=== PATIENT | female | born 1950 | race Caucasian/White ===

== ENCOUNTER 2017-05-20 10:18 | Day surgery (SDC) | payer MEDICARE, OTHER ==
[~2017-05-20 10:18] MED LIST: Lactated Ringers 1,000 ML IV SCH; Midazolam 1 MG/ML 2 ML SDV ONE; Propofol 200 MG/20 ML SDV ONE; fentaNYL 100 MCG/2 ML SDV ONE
--- NOTE | 2017-05-20 10:50 | PCM.PREANE ---
Preanesthetic Assessment - Anesthesia/Transfusion/Family Hx Anesthesia History: Prior Anesthesia Reaction Other Type of Anesthesia Reaction Comment: has had scop patch with the last 2 surgeries-good relief from N&V Family History of Anesthesia Reaction: No Transfusion History: No Prior Transfusion(s) Intubation History: Unknown - Review of Systems General: No Symptoms Pulmonary: No Symptoms Cardiovascular: No Symptoms Gastrointestinal: No Symptoms, Other (last one in ) Neurological: No Symptoms Other: Reports: None - Physical Assessment Height: 1.6 m Weight: 82.554 kg ASA Class: 2 Mental Status: Alert & Oriented x3 Airway Class: Mallampati = 2 Dentition: Reports: Normal Dentition Thyro-Mental Finger Breadths: 3 Mouth Opening Finger Breadths: 3 ROM/Head Extension: Full Lungs: Clear to Auscultation, Normal Respiratory Effort Cardiovascular: Regular Rate, Regular Rhythm - Allergies Allergies/Adverse Reactions: Allergies Allergy/AdvReac Type Severity Reaction Status Date / Time hydrocodone Allergy Intermediate Itching Verified 05/16/17 12:23 - Blood Blood Available: No - Anesthesia Plan Pre-Op Medication Ordered: None - Acknowledgements Anesthesia Type Planned: MAC Pt an Appropriate Candidate for the Planned Anesthesia: Yes Alternatives and Risks of Anesthesia Discussed w Pt/Guardian: Yes Pt/Guardian Understands and Agrees with Anesthesia Plan: Yes PreAnesthesia Questionnaire HEENT History: Reports: Cataract, Macular Degeneration Other HEENT History: wears glasses, has one artificial tooth Cardiovascular History: Reports: Hypertension Gastrointestinal History: Reports: GERD Genitourinary History: Reports: Urinary Incontinence Other Genitourinary History: overactive bladder Musculoskeletal History: Reports: Arthritis, Back Pain, Chronic Endocrine/Metabolic History: Reports: Obesity/BMI 30+ - Past Surgical History Head Surgeries/Procedures: Reports: None HEENT Surgical History: Reports: Cataract Surgery GI Surgical History: Reports: Appendectomy, Cholecystectomy, Colonoscopy (- normal) Female Surgical History: Reports: Breast Reduction, Tubal Ligation, Other ( See Below) Other Female Surgeries/Procedures: insertion of "Interstim" device Musculoskeletal Surgical History: Reports: Shoulder Surgery Other Musculoskeletal Surgeries/Procedures:: left shoulder arthroscopy with tendon repair and removal of bone spur - SUBSTANCE USE Smoking Status *Q: Never Smoker Days Per Week of Alcohol Use: 0 Recreational Drug Use History: No - HOME MEDS Home Medications: Home Meds Estrogens, Conjugated [Premarin Vaginal Crm] 1 applic VAG DAILY 05/16/17 [ History] Ibuprofen 200 mg PO ASDIRECTED 05/16/17 [History] Losartan Potassium 100 mg PO QAM 05/16/17 [History] Naltrexone HCl/Bupropion HCl [Contrave ER 8-90 mg Tablet] 2 tab PO BID 05/16/17 [History] Pantoprazole Sodium 40 mg PO DAILY 05/16/17 [History] Vit C/E/Zn/Coppr/Lutein/Zeaxan [Preservision Areds 2 Softgel] 1 cap PO DAILY [History] - CURRENT (IN HOUSE) MEDS Current Meds: Current Medications Lactated Ringer's (Ringers, Lactated) 1,000 mls @ 125 mls/hr IV ASDIRECTED [facility]I Discontinued Medications Fentanyl (Sublimaze) Confirm Administered Dose 100 mcg .ROUTE .STK-MED ONE Stop: 05/20/17 08:20 Lidocaine HCl (Xylocaine-Mpf 1%) Confirm Administered Dose 5 ml .ROUTE .STK-MED ONE Stop: 05/20/17 08:20 Midazolam HCl (Versed 1 Mg/Ml) Confirm Administered Dose 2 mg .ROUTE .STK-MED ONE Stop: 05/20/17 08:20 Propofol (Diprivan 20 Ml) Confirm Administered Dose 200 mg .ROUTE .STK-MED ONE Stop: 05/20/17 08:20
[2017-05-20] MEDS ORDERED: Lactated Ringers 1,000 ML IV SCH (11:45)
--- NOTE | 2017-05-20 11:47 | PCM.OPNOTE ---
- General Post-Op/Procedure Note Date of Surgery/Procedure: 05/20/17 Operative Procedure(s): Colonoscopy with snare rectal polypectomy Pre Op Diagnosis: Change in bowel habits Post-Op Diagnosis: Rectal polyp. Minimal diverticulosis. Anesthesia Technique: MAC (ASA II) Primary Surgeon: Thony Pettit Condition: Good Free Text/Narrative:: Dictation [id number] CPT CODE [id number]
--- NOTE | 2017-05-20 12:24 | OR ---
SURGEON: Thony Pettit M.D. DATE OF PROCEDURE: 05/20/2017 OPERATION PERFORMED: Colonoscopy with snare rectal polypectomy. ANESTHESIA: MAC. ASA CLASSIFICATION: II. PREOPERATIVE DIAGNOSIS: Change in bowel habits. POSTOPERATIVE DIAGNOSIS: Rectal polyp. DESCRIPTION OF PROCEDURE: The patient was taken to the endoscopy room and positioned on the endoscopy table in the left lateral decubitus position. Time-out was called for appropriate identification of the patient and procedure. Monitored anesthesia care was provided. The colonoscope was inserted into the rectum and advanced with minimal difficulty to the cecum, where the colonoscope was retroflexed to visualize the ascending colon from below. The colonoscope was then straightened and slowly withdrawn. The cecum, ascending colon, hepatic flexure, transverse colon, splenic flexure, descending colon showed no tumors, polyps, diverticula, or angiodysplastic changes. A few scattered diverticula were noted in the sigmoid colon. No stricture, spasm, or bleeding was noted. One polyp was encountered in the rectum. This was removed with the snare electrocautery and recovered. The colonoscope was then retroflexed to visualize the anal orifice from above. No tumors, polyps, or acute hemorrhoidal changes were noted. The colonoscope was then straightened, the rectum aspirated, and the colonoscope removed. The patient tolerated the procedure well and was taken to recovery room in stable condition. AUDREY LEIGH /[id number]
--- NOTE | 2017-05-20 12:26 | PCM48HPAN ---
Post Anesthesia Note - EVALUATION WITHIN 48HRS OF ANESTHETIC Vital Signs in Normal Range: Yes Patient Participated in Evaluation: Yes Respiratory Function Stable: Yes Airway Patent: Yes Cardiovascular Function Stable: Yes Hydration Status Stable: Yes Pain Control Satisfactory: Yes Nausea and Vomiting Control Satisfactory: Yes Mental Status Recovered: Yes
--- NOTE | 2017-05-20 12:26 | PCM.POSTAN ---
POST ANESTHESIA ASSESSMENT - MENTAL STATUS Mental Status: Alert, Oriented - RESPIRATORY Respiratory Status: Respiratory Rate WNL, Airway Patent, O2 Saturation Stable - CARDIOVASCULAR CV Status: Pulse Rate WNL, Blood Pressure Stable - GASTROINTESTINAL GI Status: No Symptoms - PAIN Pain Score: 0 - POST OP HYDRATION Hydration Status: Adequate & Stable
[2017-05-20 15:36] VITALS: BP 131/57
== END 2017-05-20 12:45 | disposition home or self-care (01) ==
LOC: MW.SDS 10:18
PROVIDERS: ATTEND Surgery
DX: D12.8 Benign neoplasm of rectum (principal); K57.30 Diverticulosis of large intestine without perforation or abscess without bleeding; M70.62 Trochanteric bursitis, left hip; M51.16 Intervertebral disc disorders with radiculopathy, lumbar region; M48.061 Spinal stenosis, lumbar region without neurogenic claudication; I10 Essential (primary) hypertension; Z79.899 Other long term (current) drug therapy; Z88.5 Allergy status to narcotic agent; Z90.49 Acquired absence of other specified parts of digestive tract; Z98.51 Tubal ligation status; Z98.890 Other specified postprocedural states
CPT/HCPCS: 45385; J2250; J3010; J7120; 00810; 88305; J2704

== ENCOUNTER 2021-01-27 09:35 | Day surgery (SDC) | payer MEDICARE, OTHER ==
[~2021-01-27 09:35] MED LIST changes: -Midazolam 1 MG/ML 2 ML SDV ONE; -Propofol 200 MG/20 ML SDV ONE; -fentaNYL 100 MCG/2 ML SDV ONE
--- NOTE | 2021-01-27 11:32 | PCM.PREANE ---
Preanesthetic Assessment - Anesthesia/Transfusion/Family Hx Anesthesia History: Prior Anesthesia Reaction Other Type of Anesthesia Reaction Comment: has had scop patch with the last 2 surgeries-good relief from N&V Transfusion History: No Prior Transfusion(s) Intubation History: Unknown - Review of Systems General: No Symptoms Pulmonary: No Symptoms Cardiovascular: No Symptoms Gastrointestinal: No Symptoms Neurological: No Symptoms Other: Reports: None - Physical Assessment NPO Status Date: 01/27/21 NPO Status Time: 00:00 Vital Signs: Last Vital Signs Temp 97.2 F 01/27/21 10:40 Pulse 73 01/27/21 10:40 Resp 16 01/27/21 10:40 BP 143/55 H 01/27/21 10:40 Pulse Ox 96 01/27/21 10:40 Height: 5 ft 3 in Weight: 195 lb Mental Status: Alert & Oriented x3 Airway Class: Mallampati = 2 Dentition: Reports: Implants Thyro-Mental Finger Breadths: 2 Mouth Opening Finger Breadths: 2 ROM/Head Extension: Full Lungs: Clear to Auscultation, Normal Respiratory Effort Cardiovascular: Regular Rate, Regular Rhythm - Lab Values: Laboratory Last Values SARS-CoV-2 RNA (NEISHA) NEGATIVE (NEGATIVE) 01/27/21 08:50 - Allergies Allergies/Adverse Reactions: Allergies Allergy/AdvReac Type Severity Reaction Status Date / Time hydrocodone Allergy Intermediate Itching/hiv Verified 01/27/21 10:45 es phenylephrine Allergy Hives Verified 01/27/21 10:45 pyrilamine Allergy Hives Verified 01/27/21 10:45 - Acknowledgements Anesthesia Type Planned: General Anesthesia Pt an Appropriate Candidate for the Planned Anesthesia: Yes Alternatives and Risks of Anesthesia Discussed w Pt/Guardian: Yes Pt/Guardian Understands and Agrees with Anesthesia Plan: Yes PreAnesthesia Questionnaire HEENT History: Reports: Allergic Rhinitis, Cataract, Macular Degeneration Other HEENT History: wears glasses, has one upper flex tooth Cardiovascular History: Reports: Hypertension Respiratory History: Reports: None Gastrointestinal History: Reports: Colon Polyp, Diverticulosis, GERD Genitourinary History: Reports: Urinary Incontinence Other Genitourinary History: overactive bladder Musculoskeletal History: Reports: Arthritis, Back Pain, Chronic Neurological History: Reports: Other (See Below) Other Neuro History: migraines in the past Psychiatric History: Reports: None Endocrine/Metabolic History: Reports: Obesity/BMI 30+ Hematologic History: Reports: None Immunologic History: Reports: None Oncologic (Cancer) History: Reports: None Dermatologic History: Reports: None - Past Surgical History Head Surgeries/Procedures: Reports: None HEENT Surgical History: Reports: Cataract Surgery, Tonsillectomy Cardiovascular Surgical History: Reports: None Respiratory Surgical History: Reports: None GI Surgical History: Reports: Appendectomy, Cholecystectomy, Colonoscopy Female Surgical History: Reports: Breast Reduction, Tubal Ligation, Other (See Below) Other Female Surgeries/Procedures: insertion of Interstimulator device for overactive bladder, hx of endometrial bx Neurological Surgical History: Reports: None Musculoskeletal Surgical History: Reports: Shoulder Surgery Other Musculoskeletal Surgeries/Procedures:: left shoulder arthroscopy with tendon repair and removal of bone spur Oncologic Surgical History: Reports: None Dermatological Surgical History: Reports: None - SUBSTANCE USE Tobacco Use Status *Q: Never Tobacco User - HOME MEDS Home Medications: Home Meds Ibuprofen 200 mg PO ASDIRECTED PRN 05/16/17 [History] Losartan Potassium 100 mg PO QAM 05/16/17 [History] Pantoprazole Sodium 40 mg PO DAILY 05/16/17 [History] Vit C/E/Zn/Coppr/Lutein/Zeaxan [Preservision Areds 2 Softgel] 1 cap PO DAILY 05/16/17 [History] Calcium Carb, Citrate/Vit D3 [Calcium + D3 ER Tablet] 1 tab PO DAILY 01/16/21 [History] hydroCHLOROthiazide [Hydrochlorothiazide] 12.5 mg PO DAILY 01/16/21 [History] methocarbamoL [Methocarbamol] 500 mg PO TID PRN 01/16/21 [History] - CURRENT (IN HOUSE) MEDS Current Meds: Current Medications Lactated Ringer's (Ringers, Lactated) 1,000 mls @ 125 mls/hr IV ASDIRECTED [facility] Last Admin: 01/27/21 10:43 Dose: 125 mls/hr Documented by: Discontinued Medications Lactated Ringer's (Ringers, Lactated) 1,000 mls @ 125 mls/hr IV ASDIRECTED [facility]
[2021-01-27] MEDS ORDERED: Propofol 200 MG/20 ML SDV ONE (11:57)
--- NOTE | 2021-01-27 12:44 | PCM.OPNOTE ---
- General Post-Op/Procedure Note Date of Surgery/Procedure: 01/27/21 Operative Procedure(s): Colonoscopy Pre Op Diagnosis: Personal history of colon polyps. Change in bowel habits. Post-Op Diagnosis: Sigmoid diverticulosis Anesthesia Technique: MAC (ASA III) Primary Surgeon: Thony Pettit Condition: Good Free Text/Narrative:: DICTATION [id number] CPT CODE [id number]
[2021-01-27] MEDS ORDERED: Lactated Ringers 1,000 ML IV SCH (12:45)
--- NOTE | 2021-01-27 12:47 | PCM.POSTAN ---
POST ANESTHESIA ASSESSMENT - MENTAL STATUS Mental Status: Alert, Oriented - VITAL SIGNS Vital Signs: Last Vital Signs Temp 97.3 F 01/27/21 12:34 Pulse 97 01/27/21 12:42 Resp 22 H 01/27/21 12:42 BP 111/60 01/27/21 12:42 Pulse Ox 97 01/27/21 12:42 - RESPIRATORY Respiratory Status: Respiratory Rate WNL, Airway Patent, O2 Saturation Stable - CARDIOVASCULAR CV Status: Pulse Rate WNL, Blood Pressure Stable - GASTROINTESTINAL GI Status: No Symptoms - POST OP HYDRATION Hydration Status: Adequate & Stable
--- NOTE | 2021-01-27 12:48 | PCM48HPAN ---
Post Anesthesia Note - EVALUATION WITHIN 48HRS OF ANESTHETIC Vital Signs in Normal Range: Yes Patient Participated in Evaluation: Yes Respiratory Function Stable: Yes Airway Patent: Yes Cardiovascular Function Stable: Yes Hydration Status Stable: Yes Pain Control Satisfactory: Yes Nausea and Vomiting Control Satisfactory: Yes Mental Status Recovered: Yes Vital Signs: Last Vital Signs Temp 97.3 F 01/27/21 12:34 Pulse 97 01/27/21 12:42 Resp 22 H 01/27/21 12:42 BP 111/60 01/27/21 12:42 Pulse Ox 97 01/27/21 12:42
[2021-01-27 13:23] VITALS: BP 133/61; PULSE 65
--- NOTE | 2021-01-27 15:32 | OR ---
SURGEON: Thony Pettit M.D. DATE OF PROCEDURE: 01/27/2021 OPERATION PERFORMED: Colonoscopy. PRIMARY SURGEON: Thony Pettit M.D. ANESTHESIA: MAC. ASA CLASSIFICATION: III. PREOPERATIVE DIAGNOSES: 1. Personal history of colon polyps. 2. Change in bowel habits. POSTOPERATIVE DIAGNOSIS: Sigmoid diverticulosis. DESCRIPTION OF PROCEDURE: The patient was taken to the endoscopy room and positioned on the endoscopy table in the left lateral decubitus position. Time-out was called for appropriate identification of the patient and procedure. Monitored anesthesia care was provided. The colonoscope was inserted into the rectum and advanced with minimal difficulty to the cecum. The cecum was identified by internal landmarks and external pressure. The colonoscope was retroflexed to visualize the ascending colon from below and then straightened and slowly withdrawn. Cecum, ascending colon, hepatic flexure, transverse colon, splenic flexure, and descending colon showed no tumors, polyps, diverticula, or angiodysplastic changes. A few scattered sigmoid diverticula were noted. No stricture, spasm, or bleeding was encountered. The colonoscope was withdrawn to the rectum and retroflexed to visualize the anal orifice from above. Again, no tumors or polyps were seen, and there were no acute hemorrhoidal changes. The colonoscope was then straightened, the rectum aspirated, and the colonoscope removed. The patient tolerated the procedure well and was taken to recovery room in stable condition. AUDREY LEIGH /[id number]
== END 2021-01-27 13:20 | disposition home or self-care (01) ==
LOC: MW.SDS 09:35
PROVIDERS: ATTEND Surgery
DX: K57.30 Diverticulosis of large intestine without perforation or abscess without bleeding (principal); I10 Essential (primary) hypertension; K21.9 Gastro-esophageal reflux disease without esophagitis; K58.9 Irritable bowel syndrome, unspecified; E66.9 Obesity, unspecified; Z86.010 Personal history of colon polyps; Z88.8 Allergy status to other drugs, medicaments and biological substances; Z98.890 Other specified postprocedural states; Z88.5 Allergy status to narcotic agent; Z01.812 Encounter for preprocedural laboratory examination; Z20.822 Contact with and (suspected) exposure to COVID-19; Z68.34 Body mass index [BMI] 34.0-34.9, adult
CPT/HCPCS: 45378; J2704; J7120; U0002; 00812; 99100

== ENCOUNTER 2021-03-17 07:08 | Day surgery (SDC) | payer MEDICARE, OTHER ==
--- NOTE | 2021-03-17 08:08 | PCM.PREANE ---
Preanesthetic Assessment - Anesthesia/Transfusion/Family Hx Anesthesia History: Prior Anesthesia Reaction Other Type of Anesthesia Reaction Comment: has had scop patch with the last 2 surgeries-good relief from N&V Transfusion History: No Prior Transfusion(s) Intubation History: Unknown - Review of Systems General: No Symptoms Pulmonary: No Symptoms Cardiovascular: No Symptoms Gastrointestinal: Abdominal Pain, Difficulty Swallowing Neurological: No Symptoms Other: Reports: None - Physical Assessment NPO Status Date: 03/17/21 NPO Status Time: 00:00 Height: 5 ft 3 in Weight: 199 lb ASA Class: 3 Mental Status: Alert & Oriented x3 Airway Class: Mallampati = 2 Dentition: Reports: Normal Dentition Thyro-Mental Finger Breadths: 3 Mouth Opening Finger Breadths: 3 ROM/Head Extension: Full Lungs: Clear to Auscultation, Normal Respiratory Effort Cardiovascular: Regular Rate, Regular Rhythm - Lab Values: Laboratory Last Values SARS-CoV-2 RNA (NEISHA) NEGATIVE (NEGATIVE) 03/17/21 07:05 - Allergies Allergies/Adverse Reactions: Allergies Allergy/AdvReac Type Severity Reaction Status Date / Time hydrocodone Allergy Intermediate Itching/hiv Verified 01/27/21 10:45 es - Acknowledgements Anesthesia Type Planned: General Anesthesia Pt an Appropriate Candidate for the Planned Anesthesia: Yes Alternatives and Risks of Anesthesia Discussed w Pt/Guardian: Yes Pt/Guardian Understands and Agrees with Anesthesia Plan: Yes PreAnesthesia Questionnaire HEENT History: Reports: Allergic Rhinitis, Cataract, Macular Degeneration Other HEENT History: wears glasses, has one upper flex tooth Cardiovascular History: Reports: Hypertension Respiratory History: Reports: None Gastrointestinal History: Reports: Colon Polyp, Diverticulosis, GERD Genitourinary History: Reports: Urinary Incontinence Other Genitourinary History: overactive bladder Musculoskeletal History: Reports: Arthritis, Back Pain, Chronic Neurological History: Reports: Other (See Below) Other Neuro History: migraines in the past Psychiatric History: Reports: None Endocrine/Metabolic History: Reports: Obesity/BMI 30+ Hematologic History: Reports: None Immunologic History: Reports: None Oncologic (Cancer) History: Reports: None Dermatologic History: Reports: None - Past Surgical History Head Surgeries/Procedures: Reports: None HEENT Surgical History: Reports: Cataract Surgery, Tonsillectomy Cardiovascular Surgical History: Reports: None Respiratory Surgical History: Reports: None GI Surgical History: Reports: Appendectomy, Cholecystectomy, Colonoscopy Female Surgical History: Reports: Breast Reduction, Tubal Ligation, Other (See Below) Other Female Surgeries/Procedures: insertion of Interstimulator device for overactive bladder, hx of endometrial bx Endocrine Surgical History: Reports: None Neurological Surgical History: Reports: None Musculoskeletal Surgical History: Reports: Shoulder Surgery Other Musculoskeletal Surgeries/Procedures:: left shoulder arthroscopy with tendon repair and removal of bone spur Oncologic Surgical History: Reports: None Dermatological Surgical History: Reports: None - SUBSTANCE USE Tobacco Use Status *Q: Never Tobacco User - HOME MEDS Home Medications: Home Meds Ibuprofen 2 tab PO ASDIRECTED PRN 05/16/17 [History] Losartan Potassium 100 mg PO QAM 05/16/17 [History] Pantoprazole Sodium 40 mg PO DAILY 05/16/17 [History] Vit C/E/Zn/Coppr/Lutein/Zeaxan [Preservision Areds 2 Softgel] 2 cap PO DAILY 05/16/17 [History] Calcium Carb, Citrate/Vit D3 [Calcium + D3 ER Tablet] 1 tab PO DAILY 01/16/21 [History] hydroCHLOROthiazide [Hydrochlorothiazide] 12.5 mg PO DAILY 01/16/21 [History] methocarbamoL [Methocarbamol] 500 mg PO TID PRN 01/16/21 [History] Cholecalciferol (Vitamin D3) [Vitamin D3] 2,000 units PO DAILY 03/13/21 [History] Naltrexone HCl/Bupropion HCl [Contrave ER 8-90 mg Tablet] 2 tab PO BID 03/13/21 [History] - CURRENT (IN HOUSE) MEDS Current Meds: Current Medications Lactated Ringer's (Ringers, Lactated) 1,000 mls @ 125 mls/hr IV ASDIRECTED [facility]
[2021-03-17] MEDS ORDERED: fentaNYL 100 MCG/2 ML SDV ONE (09:32)
[2021-03-17] MEDS ORDERED: Lidocaine 2% 5 ML SDV ONE (09:32)
[2021-03-17] MEDS ORDERED: Propofol 200 MG/20 ML SDV ONE (09:32)
--- NOTE | 2021-03-17 10:11 | PCM.OPNOTE ---
- General Post-Op/Procedure Note Date of Surgery/Procedure: 03/17/21 Operative Procedure(s): Esophagogastroduodenoscopy with gastric and esophageal biopsies Pre Op Diagnosis: Melena. Decreased energy level. Long-standing gastroesophageal reflux disease. Post-Op Diagnosis: Mild to moderate chronic gastritis. Hiatal hernia with distal esophagitis. Anesthesia Technique: MAC (ASA III) Primary Surgeon: Thony Pettit Counter Pocket Trimmer: [place] Condition: Good Free Text/Narrative:: DICTATION [id number] CPT CODE [id number]
--- NOTE | 2021-03-17 10:13 | PCM.POSTAN ---
POST ANESTHESIA ASSESSMENT - MENTAL STATUS Mental Status: Alert, Oriented - VITAL SIGNS Vital Signs: Last Vital Signs Temp 97.5 F 03/17/21 08:07 Pulse 68 03/17/21 10:08 Resp 13 03/17/21 10:08 BP 116/48 L 03/17/21 10:08 Pulse Ox 96 03/17/21 10:08 - RESPIRATORY Respiratory Status: Respiratory Rate WNL, Airway Patent, O2 Saturation Stable - CARDIOVASCULAR CV Status: Pulse Rate WNL, Blood Pressure Stable - GASTROINTESTINAL GI Status: No Symptoms - POST OP HYDRATION Hydration Status: Adequate & Stable
--- NOTE | 2021-03-17 10:14 | PCM48HPAN ---
Post Anesthesia Note - EVALUATION WITHIN 48HRS OF ANESTHETIC Vital Signs in Normal Range: Yes Patient Participated in Evaluation: Yes Respiratory Function Stable: Yes Airway Patent: Yes Cardiovascular Function Stable: Yes Hydration Status Stable: Yes Pain Control Satisfactory: Yes Nausea and Vomiting Control Satisfactory: Yes Mental Status Recovered: Yes Vital Signs: Last Vital Signs Temp 97.5 F 03/17/21 08:07 Pulse 68 03/17/21 10:08 Resp 13 03/17/21 10:08 BP 116/48 L 03/17/21 10:08 Pulse Ox 96 03/17/21 10:08
[2021-03-17] MEDS ORDERED: Lactated Ringers 1,000 ML IV SCH (10:15)
[2021-03-17 10:35] VITALS: BP 124/62; PULSE 57
--- NOTE | 2021-03-17 14:32 | OR ---
SURGEON: Thony Pettit M.D. DATE OF PROCEDURE: 03/17/2021 OPERATION PERFORMED: Esophagogastroduodenoscopy with gastric and esophageal biopsies. PRIMARY SURGEON: Thony Pettit M.D. DRAFTER APPRENTICE: Cottage Parent: MAURY Brown student. ANESTHESIA: MAC. ASA CLASSIFICATION: III. PREOPERATIVE DIAGNOSIS: Melena with decreased energy level and longstanding gastroesophageal reflux disease. POSTOPERATIVE DIAGNOSES: 1. Mild to moderate chronic gastritis. 2. Hiatal hernia with esophagitis. DESCRIPTION OF PROCEDURE: The patient was taken to the endoscopy room and positioned on the endoscopy table in the supine position. Time-out was called for appropriate identification of the patient and procedure. Monitored anesthesia care was provided. The bite block was placed between the patient's teeth. The gastroscope was then inserted through the bite block and advanced without difficulty through the esophagus and stomach into the duodenum where examination was carried out in a retrograde fashion. The duodenum showed no acute inflammatory changes, ulcerations, or any evidence of bleeding. The gastroscope was withdrawn to the stomach which did show mild to moderate chronic appearing gastritis. No acute ulcerations were noted. The gastroscope was retroflexed to visualize the proximal stomach and cardia. The patient did have a hiatal hernia that can be seen both from above and below. I did not see any ulcerations along the greater or lesser curvatures. Antral biopsies were obtained to look for the presence of Helicobacter pylori. The gastroscope was then straightened and slowly withdrawn, again carefully visualizing the greater and lesser curvatures. The hiatal hernia was better seen from above and was of moderate size. There did appear to be columnar changes in the distal esophagus and biopsies of this area were taken separately. I did not see any acute ulcerations in the esophagus. The esophagus does demonstrate good contractility. No mid or proximal lesions were identified. The vocal cords were briefly visualized as the scope was withdrawn and noted to move symmetrically. The gastroscope was then removed with the patient having tolerated the procedure well. She was taken to recovery room in stable condition. AUDREY / REESE /[id number]
== END 2021-03-17 10:39 | disposition home or self-care (01) ==
LOC: MW.SDS 07:08
PROVIDERS: ATTEND Surgery
DX: K29.50 Unspecified chronic gastritis without bleeding (principal); K21.00 Gastro-esophageal reflux disease with esophagitis, without bleeding; K44.9 Diaphragmatic hernia without obstruction or gangrene; G89.4 Chronic pain syndrome; I10 Essential (primary) hypertension; R53.83 Other fatigue; E66.9 Obesity, unspecified; Z88.5 Allergy status to narcotic agent; Z79.899 Other long term (current) drug therapy; Z90.49 Acquired absence of other specified parts of digestive tract; Z98.890 Other specified postprocedural states; Z01.812 Encounter for preprocedural laboratory examination; Z20.822 Contact with and (suspected) exposure to COVID-19
CPT/HCPCS: 43239; 88305; 88342; J2704; J3010; J7120; U0002; 00731; 99100

== ENCOUNTER 2024-02-24 08:30 | Day surgery (SDC) | payer MEDICARE, OTHER ==
[2024-02-24] MEDS ORDERED: Scopalamine 1mg/3day Transdermal Patch TRDERM PRN (09:37)
[2024-02-24] MEDS: Lactated Ringers 1,000 ML IV SCH (09:43)
[2024-02-24] MEDS ORDERED: propofoL 50 ML ONE (10:02)
[2024-02-24] MEDS ORDERED: Lidocaine 2% 5 ML SDV ONE ×2 (10:02→10:24)
[2024-02-24] MEDS ORDERED: Propofol 200 MG/20 ML SDV ONE (10:56)
[2024-02-24] MEDS ORDERED: Lactated Ringers 1,000 ML IV SCH (11:15)
[2024-02-24 11:37] VITALS: BP 116/61; PULSE 67
== END 2024-02-24 11:45 | disposition home or self-care (01) ==
LOC: MW.SDS 08:30
PROVIDERS: ATTEND Surgery
DX: K21.01 Gastro-esophageal reflux disease with esophagitis, with bleeding (principal); K29.51 Unspecified chronic gastritis with bleeding; K44.9 Diaphragmatic hernia without obstruction or gangrene; K57.30 Diverticulosis of large intestine without perforation or abscess without bleeding; I10 Essential (primary) hypertension; E66.9 Obesity, unspecified; Z68.35 Body mass index [BMI] 35.0-35.9, adult; Z79.899 Other long term (current) drug therapy; Z86.010 Personal history of colon polyps; Z88.5 Allergy status to narcotic agent
CPT/HCPCS: 43239; 45378; 88305; 88342; A9270; J2704; J7120; 00813; 99100; J3490